=== PATIENT | female | born 1960 | race Caucasian/White ===

== ENCOUNTER 2017-11-11 18:06 | Emergency (ER) | payer MEDICAID ==
[2017-11-11 19:12] LABS: BASOPHILS # (AUTO) 0.1 10^3/uL (0.0-0.1); BASOPHILS % (AUTO) 0.7 %; EOSINOPHILS # (AUTO) 0.2 10^3/uL (0.0-0.7); EOSINOPHILS % (AUTO) 2.1 %; HGB - HEMOGLOBIN 12.7 g/dL (12.0-16.0); LYMPHOCYTES # (AUTO) 3.9 10^3/uL (1.5-3.5); MEAN CORPUSCULAR HEMOGLOBIN 26.9 pg (27.0-31.0); MEAN CORPUSCULAR VOLUME 81.6 fL (81.0-99.0); MEAN PLATELET VOLUME 7.2 fL (7.9-10.8); MONOCYTES # (AUTO) 0.4 10^3/uL (0.0-1.0); MONOCYTES % (AUTO) 4.4 %; NEUTROPHILS # (AUTO) 4.5 10^3/uL (1.5-6.6); NEUTROPHILS % (AUTO) 49.8 %; PLT - PLATELET COUNT 200 10^3/uL (130-450); RED BLOOD COUNT 4.71 10^6/uL (4.20-5.40); RED CELL DISTRIBUTION WIDTH 14.7 % (12.0-15.0); WHITE BLOOD COUNT 9.1 x10^3/uL (4.8-10.8)
[2017-11-11 19:24] LABS: CALCIUM 8.6 mg/dL (8.5-10.3); CREATININE 0.7 mg/dL (0.4-1.0)
--- NOTE | 2017-11-11 20:00 | Ultrasound Report ---
Reason: left leg swelling Procedure Date: 11/11/2017 Accession Number: [id number] / [id number] Procedure: US - Duplex Venous Limited CPT Code: FULL RESULT: EXAM: LEFT LOWER EXTREMITY VENOUS ULTRASOUND EXAM DATE: 11/11/2017 07:26 PM. CLINICAL HISTORY: Left leg swelling. COMPARISON: None. TECHNIQUE: Real-time sonographic vascular imaging was performed by the shaker washer through the lower extremity utilizing both color-flow and Doppler spectral analysis. Multiple fundraising sale representative static images were saved for review. FINDINGS: Common Femoral Vein (CFV): Normal. CFV-GSV Junction: Normal. Profunda Femoral Vein (PFV): Normal. Femoral Vein (FV) Prox: Normal. Femoral Vein (FV) Mid: Normal. Femoral Vein (FV) Dist: Normal. Popliteal Vein: Normal. Posterior Tibial Veins: Not well seen. Peroneal Veins: Not well seen. Contralateral Side CFV: Normal. Other: Left leg edema noted. IMPRESSION: No evidence for deep venous thrombosis. [facility]
--- NOTE | 2017-11-11 20:21 | XRAY Report ---
Reason: leg pain Procedure Date: 11/11/2017 Accession Number: [id number] / [id number] Procedure: XR - Tib/Fib LT CPT Code: FULL RESULT: EXAM: LEFT TIBIA/FIBULA RADIOGRAPHY EXAM DATE: 11/11/2017 08:14 PM. CLINICAL HISTORY: Left leg pain. COMPARISON: None. TECHNIQUE: 2 views. FINDINGS: Bones: Plantar spurring is present. No fracture or bone lesion. Joints: Mild degenerative changes are seen in the knee and ankle joints. Soft Tissues: Normal. No soft tissue swelling. IMPRESSION: No acute findings. RADIA
[2017-11-11] MEDS ORDERED: POTASSIUM CHLORIDE 20 MEQ TABLET PO STA (20:24)
--- NOTE | 2017-11-11 20:39 | ED Physician Documentation ---
PD HPI LOWER EXT INJURY - Stated complaint Stated Complaint: LT LEG SWELLING - Chief complaint Chief Complaint: Ext Problem - Additional information Additional information: 57-year-old female presents the emergency department with complaints of left lower leg swelling and discomfort for the past several days. The patient reports that the swelling is worse at the end of the day and improved after elevation and in the mornings. No reports of trauma or injury or skin changes. Symptoms are described as moderate. No specific triggering factors. No relieving factors. No other associated symptoms. Patient denies chest pain, shortness of breath or dyspnea on exertion Review of Systems Constitutional: denies: Fever Eyes: denies: Discharge Ears: denies: Ear pain Nose: denies: Congestion Throat: denies: Sore throat Cardiac: denies: Chest pain / pressure Respiratory: denies: Dyspnea GI: denies: Abdominal Pain : denies: Dysuria Skin: denies: Rash Musculoskeletal: reports: Extremity swelling. denies: Back pain Neurologic: denies: Generalized weakness Immunocompromised: denies: Chemotherapy PD PAST MEDICAL HISTORY - Present Medications Home Medications: Ambulatory Orders Medication Instructions Recorded Confirmed Amlodipine Besylate [Norvasc] 11/11/17 Glipizide 10 mg PO 11/11/17 hydroCHLOROthiazide 11/11/17 [Hydrochlorothiazide] raNITIdine [Zantac] 11/11/17 - Allergies Allergies/Adverse Reactions: Allergies Allergy/AdvReac Type Severity Reaction Status Date / Time lisinopril AdvReac Unknown Verified 11/11/17 18:14 PD ED PE NORMAL - General General: Alert and oriented X 3, No acute distress - HEENT HEENT: Atraumatic, PERRL, EOMI, Ears normal - Cardiac Cardiac: RRR, Strong equal pulses - Respiratory Respiratory: No respiratory distress - Derm Derm: Normal color - Extremities Extremities: No deformity. No: No edema (The patient has 2+ edema of the left lower extremity with tenderness in her calf. There is no skin changes or erythematous changes. The patient has full active range of motion of the hip, knee and ankle. There is a normal dorsalis pedis pulse with brisk cap refill) - Psych Psych: Normal mood Results - Vitals Vitals: Vital Signs - 24 hr 11/11/17 18:09 Heart Rate 72 Respiratory 20 Rate Blood Pressure 146/76 H O2 Saturation 99 Oxygen O2 Source Room air - Labs Labs: Laboratory Tests 11/11/17 11/11/17 19:05 19:05 WBC 9.1 RBC 4.71 Hgb 12.7 Hct 38.4 MCV 81.6 MCH 26.9 L MCHC 33.0 RDW 14.7 Plt Count 200 MPV 7.2 L Neut # (Auto) 4.5 Lymph # (Auto) 3.9 H [place] # (Auto) 0.4 Eos # (Auto) 0.2 Baso # (Auto) 0.1 Absolute Nucleated RBC 0.01 Nucleated RBC % 0.1 Sodium 140 Potassium 3.0 L Chloride 101 Carbon Dioxide 31 Anion Gap 8.0 BUN 13 Creatinine 0.7 Estimated GFR (MDRD) 86 L Glucose 105 H Calcium 8.6 Total Creatine Kinase 160 - Rads (name of study) US Radiology: Final report received (IMPRESSION: No evidence for deep venous thrombosis. ) XR tib/fib Radiology: Final report received (IMPRESSION: No acute findings. ) PD MEDICAL DECISION MAKING - ED course ED course: No acute DVT on the patient's workup, the patient appears appropriate for discharge and ongoing outpatient management. I discussed with her using ROSA hose to help manage her peripheral edema. The patient understands and agrees. I discussed warning signs and recommended returning to the emergency department immediately for worsening or concerns. - Sepsis Event Vital Signs: Vital Signs - 24 hr 11/11/17 18:09 Heart Rate 72 Respiratory 20 Rate Blood Pressure 146/76 H O2 Saturation 99 Oxygen O2 Source Room air Departure - Departure Disposition: 01 Home, Self Care Clinical Impression: Leg swelling Condition: Good Instructions: ED Leg Swelling Unilateral Follow-Up: Carito Durbin MD [Primary Care Provider] - Comments: Please return to the ER for worsening symptoms or any concerns
[2017-11-11 20:59] VITALS: BP 135/74
== END 2017-11-11 20:59 | disposition home or self-care (01) ==
LOC: ED 18:06
DX: R22.42 Localized swelling, mass and lump, left lower limb (principal)
CPT/HCPCS: 36415; 73590; 80048; 82550; 85025; 93971; 99283; A9270

== ENCOUNTER 2019-09-17 16:24 | Outpatient (CLI) | payer MEDICAID ==
--- NOTE | 2019-09-17 17:49 | Ultrasound Report ---
PROCEDURE: Duplex Ext Veins Right INDICATIONS: PEDAL EDEMA TECHNIQUE: Real-time imaging, as well as color and pulse Doppler interrogation, were performed of the lower extr emity deep veins from the inguinal ligament to the popliteal fossa. COMPARISON: None. FINDINGS: The deep veins are normally compressible, and free of intraluminal thrombus. Color and pu lse Doppler demonstrate normal phasic intraluminal flow. There is normal augmentation response to di stal compression maneuver. IMPRESSION: No evidence of right lower extremity DVT. Reviewed by: Yousuf Vicente MD on 09/17/2019 5:48 PM PDT Approved by: Yousuf Vicente MD on 09/17/2019 5:48 PM PDT Station ID: [id number]
== END 2019-09-17 16:25 | disposition home or self-care (01) ==
LOC: DI 16:24
PROVIDERS: ATTEND Family Medicine
DX: R60.0 Localized edema (principal)

== ENCOUNTER 2022-09-04 14:32 | Outpatient (CLI) | payer MEDICAID ==
[2022-09-04 17:57] LABS: BASOPHILS % (AUTO) 0.2 %; EOSINOPHILS % (AUTO) 0.4 %; HCT - HEMATOCRIT 42.5 % (37.0-47.0); HGB - HEMOGLOBIN 13.1 g/dL (12.0-16.0); LYMPHOCYTES % (AUTO) 47.8 %; MEAN CORPUSCULAR HEMOGLOBIN 25.4 pg (27.0-31.0); MEAN CORPUSCULAR HGB CONC 30.8 g/dL (32.0-36.0); MEAN CORPUSCULAR VOLUME 82.4 fL (81.0-99.0); MEAN PLATELET VOLUME 10.2 fL (7.9-10.8); MONOCYTES % (AUTO) 4.7 %; NEUTROPHILS % (AUTO) 46.5 %; PLT - PLATELET COUNT 195 10^3/uL (130-450); RED BLOOD COUNT 5.16 10^6/uL (4.20-5.40); RED CELL DISTRIBUTION WIDTH 15.1 % (12.0-15.0); WHITE BLOOD COUNT 11.2 x10^3/uL (4.8-10.8)
[2022-09-04 18:04] LABS: ABNORMAL LYMPHS % (MANUAL) 0 %; BAND NEUTROPHILS % (MANUAL) 0 %
[2022-09-04 18:11] LABS: ALBUMIN/GLOBULIN RATIO 1.3 (1.0-2.2); ALKALINE PHOSPHATASE 93 IU/L (42-121); ALT ALANINE AMINOTRANSFERASE 27 IU/L (10-60); AST ASPARTATE AMINOTRANSFERASE 26 IU/L (10-42); BILIRUBIN,TOTAL 0.5 mg/dL (0.2-1.0); BUN - BLOOD UREA NITROGEN 14 mg/dL (6-20); CALCIUM 8.5 mg/dL (8.5-10.3); CARBON DIOXIDE - CO2 29 mmol/L (21-32); CHLORIDE 105 mmol/L (101-111); CHOL/HDL RATIO 3.5 (<4.4); CHOLESTEROL 176 mg/dL; CREATININE 0.7 mg/dL (0.4-1.0); CRP - C-REACTIVE PROTEIN 1.2 mg/dL (0-1.0); GFR - MDRD 85 (>89); GLUCOSE 168 mg/dL (70-100); HDL CHOLESTEROL 50 mg/dL; LDL CHOLESTEROL,CALCULATED 97 mg/dL; LDL/HDL RATIO 1.9 (<4.4); POTASSIUM 3.7 mmol/L (3.5-5.0); SODIUM 141 mmol/L (135-145); TRIGLYCERIDES 144 mg/dL; VLDL CHOLESTEROL 29 mg/dL
[2022-09-04 18:16] LABS: CREATININE,URINE 193.2 mg/dL; MICROALBUM/CREATININE RATIO,UR 10.4 ug/mg (<30.0)
[2022-09-04 18:19] LABS: THYROID STIMULATING HORMONE 2.99 uIU/mL (0.34-5.60)
[2022-09-04 18:54] LABS: RHEUMATOID FACTOR NEGATIVE (Negative)
[2022-09-04 19:04] LABS: EOSINOPHILS # (MANUAL) 0.2 10^3/uL (0-0.7); LYMPHOCYTES # (MANUAL) 5.4 10^3/uL (1.5-3.5); LYMPHOCYTES % (MANUAL) 41 %; MONOCYTES # (MANUAL) 0.7 10^3/uL (0.0-1.0); NEUTROPHILS # (MANUAL) 4.9 10^3/uL (1.5-6.6); REACTIVE LYMPHS % (MANUAL) 7 %
[2022-09-04 19:05] LABS: DIFFERENTIAL COMMENT MANUAL DIFFERENTIAL; PLATELET ESTIMATE, MANUAL NORMAL (130-450,000) (NORMAL); PLATELET MORPHOLOGY NORMAL APPEARANCE (NORMAL); RBC MORPHOLOGY (MULTIPLE) NORMAL APPEARANCE (NORMAL)
[2022-09-04 20:34] LABS: ESTIMATED AVERAGE GLUCOSE 157 mg/dL (70-100); HEMOGLOBIN A1c% 7.1 % (4.27-6.07)
[2022-09-06 17:08] LABS: ANTINUCLEAR ANTIBODIES IFA Negative (.)
== END 2022-09-04 14:33 | disposition home or self-care (01) ==
LOC: LAB.N 14:32
PROVIDERS: ATTEND Physician Assistant
DX: E11.9 Type 2 diabetes mellitus without complications (principal); E78.5 Hyperlipidemia, unspecified; M25.50 Pain in unspecified joint
CPT/HCPCS: 36415; 80053; 80061; 82043; 82570; 83036; 83721; 84443; 85025; 85651; 86038; 86140; 86430